=== PATIENT | female | born 1990 | race African-American/Black ===

== ENCOUNTER 2016-07-30 21:54 | Emergency (ER) | payer MEDICAID ==
[~2016-07-30] VITALS: Ht 170.2 cm; Wt 56.0 kg
[~2016-07-30 21:54] MED LIST: OCUF0.3D RIGHT EYE
[2016-07-30 21:56] VITALS: BP 114/66; PULSE 69; RESP 16; TEMP 98.9; O2SAT 100
[2016-07-30] MEDS ORDERED: ALBU6.7H INH (22:08)
[2016-07-30] MEDS ORDERED: SODIUM CHLOR 0.9% 1000 ML INJ 1,000 ML IV ONE (22:15)
[2016-07-30] MEDS ORDERED: ONDANSETRON HCL 4 MG/2 ML VIAL IV ONE (22:15)
[2016-07-30 22:31] VITALS: RESP 18; O2SAT 100
[2016-07-30 22:36] LABS: AUTOMATED NEUTROPHIL # 1.9 TH/MM3 (1.8-7.7); BASOPHIL % 0.6 % (0.0-2.0); EOSINOPHIL # 0.2 TH/MM3 (0-0.4); EOSINOPHIL % 3.8 % (0.0-4.0); HEMATOCRIT 33.4 % (35.0-46.0); HEMO FLAGS DIFF FINAL; LYMPH % 42.5 % (9.0-44.0); MEAN CORPUSCULAR HEMOGLOBIN 30.4 PG (27.0-34.0); MEAN CORPUSCULAR HGB CONC 33.4 % (32.0-36.0); MONO % 11.6 % (0.0-8.0); NEUT % 41.5 % (16.0-70.0); PLATELET COUNT 280 TH/MM3 (150-450); RED BLOOD COUNT 3.67 MIL/MM3 (4.00-5.30); RED CELL DISTRIBUTION WIDTH 13.3 % (11.6-17.2); WHITE BLOOD COUNT 4.6 TH/MM3 (4.0-11.0)
[2016-07-30 22:46] LABS: BLOOD, URINE MOD (NEG); GLUCOSE,URINE NEG (NEG); KETONE, URINE NEG (NEG); MUCUS URINE FEW /lpf (OCC); NITRITE,URINE NEG (NEG); PH, URINE 6.5 (5.0-8.5); RENAL EPITHELIAL CELLS <1 /hpf; SQUAMOUS EPITHELIAL CELL URINE 1 /hpf (0-5); URINE COLOR YELLOW (YELLW/STRAW)
[2016-07-30 22:47] LABS: COMMENT (UR) CULT NOT INDICATED; CULTURE IF INDICATED CULT NOT INDICATED
[2016-07-30 22:56] LABS: ALT (GPT) 57 U/L (10-53); ANION GAP 7 MEQ/L (5-15); AST (GOT) 36 U/L (15-37); BLOOD UREA NITROGEN 7 MG/DL (7-18); CHLORIDE 107 MEQ/L (98-107); GLOMERULAR FILTRATION RATE 135 ML/MIN (>89); POTASSIUM 3.4 MEQ/L (3.5-5.1); SODIUM (NA) 142 MEQ/L (136-145)
[2016-07-30 22:58] LABS: ALKALINE PHOSPHATASE 64 U/L (45-117); TOTAL BILIRUBIN ADULT 0.3 MG/DL (0.2-1.0)
--- NOTE | 2016-07-30 23:09 | RADRPT ---
EXAM DATE/TIME: 07/30/2016 22:56 [place] COMPARISON: No previous studies available for comparison. INDICATIONS : Cephalgia. RADIATION DOSE: 34.15 CTDIvol (mGy) MEDICAL HISTORY : None SURGICAL HISTORY : None. ENCOUNTER: Initial ACUITY: 1 day PAIN SCALE: 6/10 LOCATION: cranial TECHNIQUE: Multiple contiguous axial images were obtained of the head. Using automated exposure control and adj ustment of the mA and/or kV according to patient size, radiation dose was kept as low as reasonably a chievable to obtain optimal diagnostic quality images. FINDINGS: CEREBRUM: The ventricles are normal for age. No evidence of midline shift, mass lesion, hemorrhage or acute in farction. No extra-axial fluid collections are seen. POSTERIOR FOSSA: The cerebellum and brainstem are intact. The 4th ventricle is midline. The cerebellopontine angle i s unremarkable. EXTRACRANIAL: The visualized portion of the orbits is intact. SKULL: The calvaria is intact. No evidence of skull fracture. CONCLUSION: Normal examination for a patient of this age. Eleuterio Solorzano MD on July 30, 2016 at 23:03 Board Certified Radiologist. This report was verified electronically.
[2016-07-30] MEDS ORDERED: ACETAMINOPHEN 325 MG TAB PO ONE (23:30)
[2016-07-30] MEDS ORDERED: cefTRIAXone INJ 1,000 MG in SODIUM CHLORIDE 0.9% INJ 100 ML IV ONE (23:30)
--- NOTE | 2016-07-30 23:40 | PD ---
HPI Chief Complaint: Headache Time Seen by Provider: 22:08 Travel History International Travel<30 days: No Contact w/Intl Traveler<30days: No Traveled to known affect area: No History of Present Illness HPI The patient is a 25 year old female who presents to the [facility] emergency department with a history of at the end of last week beginning to have dysuria with urinary frequency and urgency, and then over the weekend developing upper respiratory symptoms including cough, congestion, sinus pressure over her for head. The patient reports that the headache became worse prior to arrival and was associated with nausea and vomiting 2. She reports that her kids have recently been sick with an upper respiratory infection. She reports that she's had a subjective fever. She denies having any neck pain. She denies having any diarrhea. Her last bowel movement was yesterday. She has a known history of asthma, however she has not been using an inhaler. She denies any chest pain, chest pressure, or shortness of breath. She cannot recall when she last had a menstrual cycle as she has the Mirena IUD. The patient denies any history of abdominal pain, one-sided weakness, slurred speech , vision changes, dizziness, facial droop, numbness or tingling to her extremities, or difficulty with word finding ability. PFSH Past Medical History Narrative Medical The patient's past medical history is significant for mild asthma. Asthma: Yes Diminished Hearing: No Respiratory: Yes (asthma) ?: Not Past Surgical History Narrative Surgical The patient's past surgical history is reportedly none. Surgical History: No Previous Surgery Social History Alcohol Use: No Tobacco Use: No Substance Use: No Allergies-Medications (Allergen,Severity, Reaction): Coded Allergies: Ibuprofen (Verified Allergy, Severe, THROAT SWELLING, 03/29/16) Reported Meds & Prescriptions Reported Meds & Active Scripts Active Reported Proventil Hfa 6.7 GM Inh (Albuterol Sulfate) 90 Mcg/Act Aer 1 Puff INH Q4H PRN Review of Systems Except as stated in HPI: all other systems reviewed are Neg General / Constitutional: No: Fever Eyes: No: Visual changes HENT: Positive: Headaches, Congestion Cardiovascular: No: Chest Pain or Discomfort Respiratory: Positive: Cough, No: Shortness of Breath Gastrointestinal: Positive: Nausea, Vomiting, No: Abdominal Pain Genitourinary: Positive: Urgency, Frequency, Dysuria Musculoskeletal: No: Pain Skin: No Rash Neurologic: Positive: Headache, No: Weakness, Focal Abnormalities, Change in Mentation, Slurred Speech, Sensory Disturbance Psychiatric: No: Depression Endocrine: No: Polydipsia Hematologic/Lymphatic: No: Easy Bruising Physical Exam Narrative General: The patient is a well-developed well-nourished female in no acute distress. Head and Neck exam: Head is normocephalic atraumatic. Eyes: EOMI, pupils are equal round and reactive to light. Sinus pressure noted on palpation of the frontal sinuses. Nose: Midline septum with erythematous edematous nasal mucosa and a clear nasal discharge. Mouth: Dentition unremarkable. Moist mucus membranes. Posterior oropharynx is mildly erythematous with mild tonsillar hypertrophy. No exudates. Uvula midline. Airway patent. Neck: No palpable lymphadenopathy. No nuchal rigidity. No thyromegaly. Cardiovascular: Regular rate and rhythm without murmurs, gallops, or rubs. Lungs: Clear to auscultation bilaterally. No wheezes, rhonchi, or rales. Abdomen: Soft, without tenderness to palpation in all 4 quadrants of the abdomen. No guarding, rebound, or rigidity. Normal bowel sounds are audible. No tenderness on palpation of McBurney's point. Negative Trotter's sign. Extremities: No clubbing, cyanosis, or edema. 2+ pulses in all 4 extremities. Back: No spinous process tenderness to palpation. Right-sided CVA tenderness on palpation. Neurologic Exam: Cranial nerves 2-12 were intact on exam. Strength is 5/5 in all 4 extremities. No sensory deficits noted. Skin Exam: No rash noted. Intact skin that is warm and dry. Data Data Last Documented VS Vital Signs Date Time Temp Pulse Resp B/P Pulse Ox O2 Delivery O2 Flow Rate FiO2 07/30/16 22:31 18 100 07/30/16 21:56 98.9 69 114/66 Orders Complete Blood Count With Diff (07/30/16 22:10) Comprehensive Metabolic Panel (07/30/16 22:10) Lipase (07/30/16 22:10) Urinalysis - C+S If Indicated (07/30/16 22:10) Magnesium (Mg) (07/30/16 22:10) Ct Brain W/O Iv Contrast(Rout) (07/30/16 22:10) Iv Access Insert/Monitor (07/30/16 22:10) Ecg Monitoring (07/30/16 22:10) Oximetry (07/30/16 22:10) Ed Urine Pregnancytest Poc (07/30/16 22:10) Sodium Chlor 0.9% 1000 Ml Inj (Ns 1000 M (07/30/16 22:15) Ondansetron Inj (Zofran Inj) (07/30/16 22:15) Acetaminophen (Tylenol) (07/30/16 23:30) Ceftriaxone Inj (Rocephin Inj) (07/30/16 23:30) Urine Culture (07/30/16 23:37) Ketorolac Inj (Toradol Inj) (07/30/16 23:45) Prochlorperazine Inj (Compazine Inj) (07/30/16 23:45) Diphenhydramine Inj (Benadryl Inj) (07/30/16 23:45) Labs Laboratory Tests Test 07/30/16 22:17 White Blood Count 4.6 TH/MM3 Red Blood Count 3.67 MIL/MM3 Hemoglobin 11.2 GM/DL Hematocrit 33.4 % Mean Corpuscular Volume 91.0 FL Mean Corpuscular Hemoglobin 30.4 PG Mean Corpuscular Hemoglobin 33.4 % Concent Red Cell Distribution Width 13.3 % Platelet Count 280 TH/MM3 Mean Platelet Volume 7.4 FL Neutrophils (%) (Auto) 41.5 % Lymphocytes (%) (Auto) 42.5 % Monocytes (%) (Auto) 11.6 % Eosinophils (%) (Auto) 3.8 % Basophils (%) (Auto) 0.6 % Neutrophils # (Auto) 1.9 TH/MM3 Lymphocytes # (Auto) 2.0 TH/MM3 Monocytes # (Auto) 0.5 TH/MM3 Eosinophils # (Auto) 0.2 TH/MM3 Basophils # (Auto) 0.0 TH/MM3 CBC Comment DIFF FINAL Differential Comment Urine Color YELLOW Urine Turbidity CLEAR Urine pH 6.5 Urine Specific [place] 1.018 Urine Protein NEG mg/dL Urine Glucose (UA) NEG mg/dL Urine Ketones NEG mg/dL Urine Occult Blood MOD Urine Nitrite NEG Urine Bilirubin NEG Urine Urobilinogen LESS THAN 2.0 MG/DL Urine Leukocyte Esterase MOD Urine RBC 14 /hpf Urine WBC 2 /hpf Urine Squamous Epithelial 1 /hpf Cells Urine Renal Epithelial Cells <1 /hpf Urine Mucus FEW /lpf Microscopic Urinalysis Comment CULT NOT INDICATED Sodium Level 142 MEQ/L Potassium Level 3.4 MEQ/L Chloride Level 107 MEQ/L Carbon Dioxide Level 28.0 MEQ/L Anion Gap 7 MEQ/L Blood Urea Nitrogen 7 MG/DL Creatinine 0.64 MG/DL Estimat Glomerular Filtration 135 ML/MIN Rate Random Glucose 93 MG/DL Calcium Level 8.1 MG/DL Magnesium Level 2.0 MG/DL Total Bilirubin 0.3 MG/DL Aspartate Amino Transf 36 U/L (AST/SGOT) Alanine Aminotransferase 57 U/L (ALT/SGPT) Alkaline Phosphatase 64 U/L Total Protein 6.8 GM/DL Albumin 4.0 GM/DL Lipase 128 U/L MDM Medical Decision Making Medical Screen Exam Complete: Yes Emergency Medical Condition: Yes Medical Record Reviewed: Yes Differential Diagnosis Acute sinusitis, versus allergy related headache, versus tension headache, versus migraine headache, versus viral syndrome, versus dehydration related headache Narrative Course During the course of the patients emergency department visit, the patients history, examination, and differential diagnosis were reviewed with the patient. The patient had IV access obtained and blood work sent for analysis. 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 The patient was initially provided Tylenol 650 by mouth 1 for pain, normal saline 1 L IV fluid bolus, Zofran 4 mg IV for nausea. The patients laboratory studies were reviewed and remarkable for a white count of 4.6, hemoglobin 11.2, platelets 280 with 11.6 monocytes, CMP is remarkable for potassium of 3.4, calcium 8.1, ALT 57, lipase 128, urinalysis shows moderate occult blood, 14 RBCs, 2wbc's, a culture of the urine was ordered. Radiology studies were reviewed and remarkable for a CT scan of the brain shows no acute abnormality. The patient was reexamined after additionally being given Toradol 15 mg IV, Compazine 5 mg IV, Benadryl 25 mg IV. The patient reported that her headache was improving. The patient will be discharged home on antibiotics for a suspected urinary tract infection and sinus infection. The patient is resting comfortably and feels better, is alert and in no distress. The patients results and examination findings were discussed with the patient. The repeat examination is unremarkable and benign. The history, exam, diagnostic testing, and current condition do not suggest any significant pathology to warrant further testing, continued ED treatment, admission, or surgical evaluation at this point. The vital signs have been stable. The patient does not have uncontrollable pain, intractable vomiting, or other significant symptoms. The patient's condition is stable and appropriate for discharge. The patient will pursue further outpatient evaluation with a primary care physician or other designated or consulting physician as indicated in the discharge instructions. The patient expressed understanding and was agreeable with this plan. Diagnosis Primary Impression: Acute sinusitis Qualified Code: J01.10 - Acute frontal sinusitis, recurrence not specified Additional Impression: Urinary tract infection Qualified Code: N39.0 - Urinary tract infection with hematuria, site unspecified Referrals: Primary Care Physician 3 days Patient Instructions: Acute Nausea and Vomiting (ED), General Instructions, Sinusitis (ED), Urinary Tract Infection in Women (ED) Med/Other Pt SpecificInfo: Prescription(s) given Scripts Cefuroxime (Ceftin)500 Mg Pry307 Mg PO BID #20 TAB Ref 0 Prov:Michaela Pruitt MD 07/31/16 Ondansetron Odt (Zofran Odt)4 Mg Tab4 Mg SL Q6HR PRN (Nausea/Vomiting) #7 TAB Ref 0 Prov:Michaela Pruitt MD 07/31/16 Disposition: 01 DISCHARGE HOME Condition: Stable Michaela Pruitt MD Jul 30, 2016 23:40
[2016-07-30] MEDS ORDERED: KETOROLAC TROMETHAMINE 30 MG/ML (IVP) VIAL IV PUSH ONE (23:45)
[2016-07-30] MEDS ORDERED: PROCHLORPERAZINE INJ 10 MG/2 ML VIAL IV PUSH ONE (23:45)
[2016-07-30] MEDS ORDERED: diphenhydrAMINE HCL 50 MG/ML VIAL IV PUSH ONE (23:45)
[2016-07-31] MEDS ORDERED: ZOFR4TAB3 SL (00:31)
[2016-07-31] MEDS ORDERED: CEFT500T3 PO (00:31)
== END 2016-07-31 01:10 | disposition home or self-care (01) ==
LOC: NEPE 21:54
DX: J01.10 Acute frontal sinusitis, unspecified (principal); N39.0 Urinary tract infection, site not specified; B96.89 Other specified bacterial agents as the cause of diseases classified elsewhere; R31.9 Hematuria, unspecified; R11.2 Nausea with vomiting, unspecified
CPT/HCPCS: 70450; 80053; 81001; 83690; 83735; 84703; 85025; 87086; 96361; 96365; 96375; 99284; J0696; J0780; J1200; J1885; J2405; J7030

== ENCOUNTER 2016-08-08 22:42 | Emergency (ER) | payer MEDICAID ==
[~2016-08-08] VITALS: Ht 170.2 cm; Wt 55.0 kg
[~2016-08-08 22:42] MED LIST changes: +ALBU6.7H INH; +CEFT500T3 PO; -OCUF0.3D RIGHT EYE; +ZOFR4TAB3 SL
[2016-08-08 22:44] VITALS: BP 124/63; PULSE 68; RESP 14; TEMP 98.8; O2SAT 100
[2016-08-08] MEDS ORDERED: PERI0.126 SWISH-SPIT (23:00)
--- NOTE | 2016-08-08 23:00 | PD ---
HPI Chief Complaint: ENT Complaint Time Seen by Provider: 22:59 Travel History International Travel<30 days: No Contact w/Intl Traveler<30days: No Traveled to known affect area: No History of Present Illness HPI 25-year-old female presents to the emergency department for evaluation of right sided tooth pain and ear pain. Patient states she was recently treated for a sinus infection as well as dental infection. She states she took her antibiotics as prescribed. She has not yet been able to get into a dentist. Denies any trauma. No fever or chills. No cough or chest congestion. She has no other symptoms to report. PFSH Past Medical History Asthma: Yes Diminished Hearing: No Respiratory: Yes (asthma) Social History Alcohol Use: No Tobacco Use: No Substance Use: No Allergies-Medications (Allergen,Severity, Reaction): Coded Allergies: Ibuprofen (Verified Allergy, Severe, THROAT SWELLING, 08/08/16) Reported Meds & Prescriptions Reported Meds & Active Scripts Active Ultram (Tramadol HCl) 50 Mg Tab 50 Mg PO Q6H PRN Peridex Liq (Chlorhexidine Gluconate (Mouth) Liq) 0.12% Soln 15 Ml SWISH-SPIT BID Ceftin (Cefuroxime Axetil) 500 Mg Tab 500 Mg PO BID Zofran Odt (Ondansetron Odt) 4 Mg Tab 4 Mg SL Q6HR PRN Reported Proventil Hfa 6.7 GM Inh (Albuterol Sulfate) 90 Mcg/Act Aer 1 Puff INH Q4H PRN Review of Systems Except as stated in HPI: all other systems reviewed are Neg Physical Exam Narrative GENERAL: Well-nourished, well-developed female patient in no acute distress SKIN: Focused skin assessment warm/dry. HEAD: Normocephalic. Erythema or edema. No mastoid tenderness. EARS: Bilateral pinnae and external canals appear within normal limits. Bilateral tympanic membranes without erythema, dullness or perforation. EYES: No scleral icterus. No injection or drainage. ENT: Mucosa pink and moist. No erythema or exudates. No uvular edema. No uvular , palatal, or tonsillar deviation. Airway patent. Nasal turbinates appear normal without nasal blood, purulent drainage or septal hematoma. DENTAL: Patient has generalized poor dentition. There are several teeth that are severely decayed down to the gingiva with gingival erythema. No appreciable abscess. No malocclusion. NECK: Supple, trachea midline. No JVD or lymphadenopathy. CARDIOVASCULAR: Regular rate and rhythm without murmurs, gallops, or rubs. RESPIRATORY: Breath sounds equal bilaterally. No accessory muscle use. MUSCULOSKELETAL: No cyanosis, or edema. BACK: Nontender without obvious deformity. No CVA tenderness. Data Data Last Documented VS Vital Signs Date Time Temp Pulse Resp B/P Pulse Ox O2 Delivery O2 Flow Rate FiO2 08/08/16 22:44 98.8 68 14 124/63 100 Room Air Orders Ketorolac Inj (Toradol Inj) (08/08/16 23:15) [facility] Medical Decision Making Medical Screen Exam Complete: Yes Emergency Medical Condition: Yes Medical Record Reviewed: Yes Differential Diagnosis Dental caries versus dentalgia versus periodontal disease versus gingivitis versus pulpitis Narrative Course 25-year-old female presents to the emergency department for evaluation. Patient exam is overall benign except for findings a significantly decayed teeth. Patient's pain is likely secondary to this. I strongly encouraged her to seek dental evaluation. She'll be provided Peridex oral rinse and some pain control. She agrees to return immediately with any acute worsening of symptoms. Diagnosis Primary Impression: Dentalgia Additional Impression: Dental caries Referrals: Dentist Primary Care Physician Patient Instructions: Dental Caries (ED), General Instructions Departure Forms: Tests/Procedures, Work Release Enter return to work date: August 10, 2016 Additional Instructions: It is important that you seek dental evaluation as soon as possible Return immediately with any acute worsening of symptoms Med/Other Pt SpecificInfo: Prescription(s) given Scripts Tramadol (Ultram)50 Mg Tab50 Mg PO Q6H PRN (PAIN GREATER THAN 6) #15 TAB Ref 0 Prov:Jessica Love MD 08/08/16 Chlorhexidine Gluconate (Mouth) Liq (Peridex Liq)0.12% Soln15 Ml SWISH-SPIT BID #473 ML Ref 0 Prov:Baylee Owens 08/08/16 Disposition: 01 DISCHARGE HOME Condition: Stable Baylee Owens August 08, 2016 23:00
[2016-08-08] MEDS ORDERED: ULTR50TA5 PO (23:01)
[2016-08-08] MEDS ORDERED: KETOROLAC TROMETHAMINE 60 MG/2 ML (IM) VIAL IM ONE (23:15)
== END 2016-08-08 23:33 | disposition home or self-care (01) ==
LOC: NEPK 22:42
DX: K08.89 Other specified disorders of teeth and supporting structures (principal); H92.01 Otalgia, right ear; K02.9 Dental caries, unspecified; J45.909 Unspecified asthma, uncomplicated
CPT/HCPCS: 96372; 99282; J1885

== ENCOUNTER 2016-08-11 00:05 | Emergency (ER) | payer MEDICAID ==
[~2016-08-11] VITALS: Ht 170.2 cm; Wt 55.0 kg
[~2016-08-11 00:05] MED LIST changes: +PERI0.126 SWISH-SPIT; +ULTR50TA5 PO
[2016-08-11 00:10] VITALS: BP 121/76; PULSE 67; RESP 16; TEMP 98.9; O2SAT 98
[2016-08-11] MEDS ORDERED: diphenhydrAMINE HCL 50 MG/ML VIAL ONE (01:59)
[2016-08-11] MEDS ORDERED: PROCHLORPERAZINE INJ 10 MG/2 ML VIAL ONE (01:59)
[2016-08-11] MEDS ORDERED: KETOROLAC TROMETHAMINE 30 MG/ML (IVP) VIAL ONE (02:00)
[2016-08-11] MEDS ORDERED: NAPR500T PO (02:55)
--- NOTE | 2016-08-11 02:55 | PD ---
HPI Chief Complaint: Headache Time Seen by Provider: 00:58 Travel History International Travel<30 days: No Contact w/Intl Traveler<30days: No Traveled to known affect area: No History of Present Illness HPI This is a 25-year-old female who presents to the emergency department with headache is been going on for 1 week, constant, moderate severity on the top of her head, associated with some nausea. Her headache gets worse in the evenings. She's been to the emergency department twice for similar symptoms. Once she was told it was sinusitis and another time it was thought to be related to a toothache. She says she's been taking Excedrin and it has not been helping. She says IV Toradol does make it go away. She is not typically prone to headaches. PFSH Past Medical History Asthma: Yes Diminished Hearing: No Respiratory: Yes (asthma) ?: Not LMP: 08/05/16 Past Surgical History Surgical History: No Previous Surgery Social History Alcohol Use: No Tobacco Use: No Substance Use: No Allergies-Medications (Allergen,Severity, Reaction): Coded Allergies: Ibuprofen (Verified Allergy, Severe, THROAT SWELLING, 08/11/16) Reported Meds & Prescriptions Reported Meds & Active Scripts Active Ultram (Tramadol HCl) 50 Mg Tab 50 Mg PO Q6H PRN Peridex Liq (Chlorhexidine Gluconate (Mouth) Liq) 0.12% Soln 15 Ml SWISH-SPIT BID Ceftin (Cefuroxime Axetil) 500 Mg Tab 500 Mg PO BID Zofran Odt (Ondansetron Odt) 4 Mg Tab 4 Mg SL Q6HR PRN Reported Proventil Hfa 6.7 GM Inh (Albuterol Sulfate) 90 Mcg/Act Aer 1 Puff INH Q4H PRN Review of Systems Except as stated in HPI: all other systems reviewed are Neg Physical Exam Narrative GENERAL:Well appearing, no acute distress SKIN: Focused skin assessment warm and dry. HEAD: Atraumatic. Normocephalic. EYES: Pupils equal and round. No injection or drainage. ENT: Moist mucous membranes NECK: Trachea midline. CARDIOVASCULAR: Regular rate and rhythm. No murmur appreciated. RESPIRATORY: Clear to auscultation. Breath sounds equal bilaterally. GASTROINTESTINAL: Abdomen soft, non-tender, nondistended. MUSCULOSKELETAL: No obvious deformities. NEUROLOGICAL: Awake and alert. No obvious cranial nerve deficits. No dysarthria or aphasia. No upper or lower extremity drift. No upper extremity ataxia. Visual mcarthur intact. PSYCHIATRIC: Appropriate mood and affect; insight and judgment normal. Data Data Last Documented VS Vital Signs Date Time Temp Pulse Resp B/P Pulse Ox O2 Delivery O2 Flow Rate FiO2 08/11/16 00:10 98.9 67 16 121/76 98 Room Air Orders Diphenhydramine Inj (Benadryl Inj) (08/11/16 01:59) Prochlorperazine Inj (Compazine Inj) (08/11/16 01:59) Ketorolac Inj (Toradol Inj) (08/11/16 02:00) [facility] Medical Decision Making Medical Screen Exam Complete: Yes Emergency Medical Condition: Yes Medical Record Reviewed: Yes (patient has been seen in the ER twice in the past 2 weeks for similar symptoms. She had a normal head CT performed earlier this week.) Interpretation(s) Afebrile, no tachycardia, normotensive Differential Diagnosis Migraine headache, tension headache, subarachnoid hemorrhage, sinusitis, dentalgia Narrative Course This is a 25-year-old female who presents to the emergency department with headache that's been going on for [address] imaging earlier this week which was reassuring. She has a normal neurologic exam. She is very well- appearing on exam. She was given IV Toradol, Compazine and IV fluids and feels much better and would like to go home. Patient was referred to neurology as an outpatient. Diagnosis Primary Impression: Headache Qualified Code: R51 - Nonintractable headache, unspecified chronicity pattern , unspecified headache type Referrals: Elton Johnson MD Patient Instructions: General Instructions Additional Instructions: If you develop severe worsening headache, persistent vomiting, numbness, weakness, difficulty walking or difficulty talking return to the emergency department immediately. Sometimes in the emergency department we did not identify the cause of headaches. If you continued to have headaches it is very important that you followup with your primary care physician as you may need further testing with an MRI. Med/Other Pt SpecificInfo: Prescription(s) given Scripts Naproxen 500 Mg Sby002 Mg PO BID PRN (PAIN SCALE 4 TO 10) #20 TAB Prov:Opal Tomas MD 08/11/16 Disposition: 01 DISCHARGE HOME Condition: Stable Opal Tomas MD August 11, 2016 02:55
== END 2016-08-11 03:16 | disposition home or self-care (01) ==
LOC: NED 00:05 → NEPE 03:16
DX: R51 Headache (principal)
CPT/HCPCS: 96374; 96375; 99283; J0780; J1200; J1885

== ENCOUNTER 2016-11-30 03:28 | Emergency (ER) | payer MEDICAID ==
[~2016-11-30] VITALS: Ht 170.2 cm; Wt 55.0 kg
[~2016-11-30 03:28] MED LIST changes: +NAPR500T PO
[2016-11-30 03:33] VITALS: BP 129/77; PULSE 77; RESP 18; TEMP 97.5; O2SAT 99
--- NOTE | 2016-11-30 04:55 | PD ---
HPI Chief Complaint: Eye Problems/Injury Time Seen by Provider: 04:37 Travel History International Travel<30 days: No Contact w/Intl Traveler<30days: No Traveled to known affect area: No History of Present Illness HPI 26-year-old black female presents to emergency department complaining of some right eye pain. The patient is a contact wearer. She states that she had not worn contacts for the last few weeks because she had ran out over contacts. She started wearing contacts after purchasing new contacts this past week. She' s been wearing this contact the last 6-12 hours. She states that she takes her contacts out daily and cleanse them before she reapplies them. She states that she noticed pain earlier this evening. He has become severe causing a headache , blurred vision and general malaise. She states the pain is severe. No diplopia. Positive tearing. No mucoid drainage. PFSH Past Medical History Narrative Medical Asthma Asthma: Yes Diminished Hearing: No Respiratory: Yes (asthma) Tetanus Vaccination: Unknown Influenza Vaccination: Yes ?: Not LMP: IUD Past Surgical History Surgical History: No Previous Surgery Social History Alcohol Use: No Tobacco Use: No Substance Use: No Allergies-Medications (Allergen,Severity, Reaction): Coded Allergies: ibuprofen (Unverified Allergy, Severe, THROAT SWELLING, 11/19/16) Reported Meds & Prescriptions Reported Meds & Active Scripts Active No Active Prescriptions or Reported Medications Review of Systems Except as stated in HPI: all other systems reviewed are Neg General / Constitutional: No: Fever, Chills Eyes: Positive: Blurred Vision, Photophobia, Redness, Foreign Body Sensation, Pain, Tearing, Visual changes, No: Diploplia, Drainage, Blindness HENT: No: Headaches, Neck Stiffness Physical Exam Narrative GENERAL: Well-developed, well-nourished in no acute distress. Nontoxic appearing. HEAD: Normocephalic, atraumatic. EYES: Pupils equal round and reactive. Extraocular motions intact. No scleral icterus. No injection or drainage in the left eye. The right eye is injected. Ophthaine is instilled in the right eye with resolution of her pain. Direct visualization of the right eye reveals a corneal ulcer which can be seen with the naked eye at the 8:00 hour over the iris. This measures approximately 1-2 mm. Fluorescein stain confirms the ulcer. ENT: TMs clear without erythema. The external auditory canals clear. Nose: clear . Posterior pharynx is pink and moist. No tonsillar edema or exudate. Uvula midline. Airway patent. NECK: Trachea midline.Supple, nontender, moves head freely. No central bony tenderness or spasm. CARDIOVASCULAR: Regular rate and rhythm without murmurs, gallops, or rubs. RESPIRATORY: Clear to auscultation. Breath sounds equal bilaterally. No wheezes , rales, or rhonchi. GASTROINTESTINAL: Abdomen soft, non-tender, nondistended. No hepato-splenomegaly , or palpable masses. No guarding. EXTREMITIES: No clubbing, cyanosis, or edema. No joint tenderness, effusion, or edema noted. BACK: Nontender without deformity or crepitance. No flank tenderness. Data Data Last Documented VS Vital Signs Date Time Temp Pulse Resp B/P (MAP) Pulse Ox O2 Delivery O2 Flow Rate FiO2 11/30/16 03:33 97.5 77 18 129/77 (94) 99 Orders Orders Oxycodone-Acetamin 5-325 Mg (Percocet (11/30/16 05:00) Moxifloxacin 0.5% Opht Soln (Vigamox 0.5 (11/30/16 05:00) Tetanus/Diphtheria Tox Adult (Tetanus/Di (11/30/16 05:00) MDM Medical Decision Making Medical Screen Exam Complete: Yes Emergency Medical Condition: Yes Medical Record Reviewed: Yes Differential Diagnosis MDM: High Differential diagnoses: Acute conjunctivitis (bacterial, viral, allergic, traumatic), glaucoma, iritis, traumatic globe injury, foreign body, corneal abrasion, corneal ulcer Narrative Course Patient's given 1 Percocet and she is started on Vigamox drops. Tetanus in position updated. The patient is advised to use the Vigamox drops 1 drop every 15 minutes for the first hour then 1 drop every hour until she sees the eye doctor today. This is right corneal ulcer Diagnosis Primary Impression: Corneal ulcer, right Patient Instructions: Narcotic given in the ED, General Instructions Additional Instructions: Rest. One drop of Vigamox every 15 minutes for the first hour then 1 drop every hour to the right eye until seen by the eye doctor today. Return to the ER for emergencies. Do not wear contacts until otherwise informed by your eye doctor. Med/Other Pt SpecificInfo: Prescription(s) given Scripts No Active Prescriptions or Reported Meds Disposition: 01 DISCHARGE HOME Condition: Hayder Casper Nov 30, 2016 04:55
[2016-11-30] MEDS ORDERED: MOXIFLOXACIN 0.5% OPHT SOLN 3 ML BTL RIGHT EYE ONE (05:00)
[2016-11-30] MEDS ORDERED: oxyCODONE/ACETAMINOPHEN 5 MG/325 MG TAB PO ONE (05:00)
[2016-11-30] MEDS ORDERED: TETANUS/DIPHTHERIA TOXOID ADULT 0.5 ML VIAL IM ONE (05:00)
[2016-11-30 05:05] VITALS: BP 111/61
== END 2016-11-30 05:27 | disposition home or self-care (01) ==
LOC: NEPD 03:28
DX: H16.001 Unspecified corneal ulcer, right eye (principal); R51 Headache; R53.81 Other malaise; Z23 Encounter for immunization; Z87.09 Personal history of other diseases of the respiratory system
CPT/HCPCS: 90471; 90714

== ENCOUNTER 2017-04-14 01:30 | Emergency (ER) | payer SELFPAY ==
[~2017-04-14] VITALS: Ht 170.2 cm; Wt 61.0 kg
[2017-04-14] MEDS ORDERED: IOHEXOL 350 MG/ML 10 ML VIAL (for RAD DIAG) IVCONTRAST ONE (01:31)
[2017-04-14 01:32] VITALS: BP 132/60; PULSE 88; RESP 16; TEMP 98; O2SAT 100
--- NOTE | 2017-04-14 02:23 | PD ---
HPI Chief Complaint: Abdominal Pain Time Seen by Provider: 02:01 Travel History International Travel<30 days: No Contact w/Intl Traveler<30days: No Traveled to known affect area: No History of Present Illness HPI The patient is a 26 year old female who presents to the [facility] emergency department with a history of abdominal pain that began 1 hour ago. The pain awoke her from sound sleep. The patient reports that the pain is severe when it occurs. It is coming and going. It woke her from sound sleep. It is sharp in character. She denies having any vaginal discharge. On review of systems otherwise, the patient denies having any recent fevers, cough, congestion, neck pain, chest pain, shortness of breath, vomiting, diarrhea, urinary symptoms, or neurologic symptoms. Her last BM was today. She denies having any blood in her stool. LMP: Mirena IUD- placed 3 years ago. PFSH Past Medical History Narrative Medical The patient's past medical history is significant for asthma. Asthma: Yes Diminished Hearing: No Respiratory: Yes (asthma) ?: Not : 3 Para: 3 Past Surgical History Surgical History: No Previous Surgery Gynecologic Surgery: Yes (FIBROID REMOVED) Social History Alcohol Use: No Tobacco Use: No Substance Use: No Allergies-Medications (Allergen,Severity, Reaction): Coded Allergies: ibuprofen (Unverified Allergy, Severe, THROAT SWELLING, 04/14/17) Reported Meds & Prescriptions Reported Meds & Active Scripts Active Flagyl (Metronidazole) 500 Mg Tab 500 Mg PO BID 14 Days Doxycycline Hyclate 100 Mg Cap 100 Mg PO BID Review of Systems Except as stated in HPI: all other systems reviewed are Neg General / Constitutional: No: Fever Eyes: No: Visual changes HENT: No: Headaches Cardiovascular: No: Chest Pain or Discomfort Respiratory: No: Shortness of Breath Gastrointestinal: Positive: Abdominal Pain, No: Nausea, Vomiting, Diarrhea Genitourinary: Positive: Pelvic Pain, No: Urgency, Frequency, Dysuria, Discharge, Vaginal Bleeding Musculoskeletal: No: Pain Skin: No Rash Neurologic: No: Weakness, Focal Abnormalities, Change in Mentation, Slurred Speech, Sensory Disturbance Psychiatric: No: Depression Endocrine: No: Polydipsia Hematologic/Lymphatic: No: Easy Bruising Physical Exam Narrative General: The patient is a well-developed well-nourished female in no acute distress. Head and Neck exam: Head is normocephalic atraumatic. Eyes: EOMI, pupils are equal round and reactive to light. Nose: Midline septum with pink mucous membranes Mouth: Dentition unremarkable. Moist mucus membranes. Posterior oropharynx is not erythematous. No tonsillar hypertrophy. Uvula midline. Airway patent. Neck: No palpable lymphadenopathy. No nuchal rigidity. No thyromegaly. Cardiovascular: Regular rate and rhythm without murmurs, gallops, or rubs. Lungs: Clear to auscultation bilaterally. No wheezes, rhonchi, or rales. Abdomen: Soft, reported tenderness on palpation along the right lower quadrant and suprapubic area. The patient has tenderness on palpation over McBurney's point. No other tenderness on palpation of the other quadrants of the abdomen. No guarding, rebound, or rigidity. Normal bowel sounds are audible. Negative Trotter's sign. Extremities: No clubbing, cyanosis, or edema. 2+ pulses in all 4 extremities. No calf tenderness on palpation. Back: No costovertebral angle tenderness to palpation. Neurologic Exam: Grossly nonfocal. Skin Exam: No rash noted. Intact skin that is warm and dry. Gynecologic exam: The patient was placed in the dorsal lithotomy position. Her external genitalia were examined. She had no evidence of rash or lesions. The speculum was placed into her vagina and the cervix was identified. She has a thin yellow discharge noted. This was wet prep and culture. The patient has cervical friability noted. On Bimanual exam: The patient's cervical os is closed. She has cervical motion tenderness on palpation. No adnexal tenderness or prominence noted on palpation. No uterine tenderness or enlargement noted on palpation. Data Data Last Documented VS Vital Signs Date Time Temp Pulse Resp B/P (MAP) Pulse Ox O2 Delivery O2 Flow Rate FiO2 04/14/17 02:35 100 Room Air 04/14/17 01:32 98.0 88 16 Orders Orders Complete Blood Count With Diff (04/14/17 02:16) Comprehensive Metabolic Panel (04/14/17 02:16) C-Reactive Protein (Crp) (04/14/17 02:16) Lipase (04/14/17 02:16) Urinalysis - C+S If Indicated (04/14/17 02:16) Iv Access Insert/Monitor (04/14/17 02:16) Ecg Monitoring (04/14/17 02:16) Oximetry (04/14/17 02:16) Ed Urine Pregnancytest Poc (04/14/17 02:16) Gc And Chlamydia Pcr (04/14/17 02:36) Wet Prep Profile (04/14/17 02:36) Ct Abd/Pel W Iv Contrast(Rout) (04/14/17 02:57) Sodium Chlor 0.9% 1000 Ml Inj (Ns 1000 M (04/14/17 03:00) Morphine Inj (Morphine Inj) (04/14/17 03:00) Ondansetron Inj (Zofran Inj) (04/14/17 03:00) Morphine Inj (Morphine Inj) (04/14/17 03:15) Iohexol 350 Inj (Omnipaque 350 Inj) (04/14/17 01:31) Ceftriaxone Inj (Rocephin Inj) (04/14/17 04:45) Azithromycin Powd Pack (Zithromax Powd P (04/14/17 04:45) Acetaminophen (Tylenol) (04/14/17 05:00) Labs Laboratory Tests Test 04/14/17 02:30 04/14/17 04:45 White Blood Count 4.6 TH/MM3 Red Blood Count 3.59 MIL/MM3 Hemoglobin 11.2 GM/DL Hematocrit 32.6 % Mean Corpuscular Volume 90.7 FL Mean Corpuscular Hemoglobin 31.2 PG Mean Corpuscular Hemoglobin Concent 34.5 % Red Cell Distribution Width 12.3 % Platelet Count 269 TH/MM3 Mean Platelet Volume 7.3 FL Neutrophils (%) (Auto) 56.4 % Lymphocytes (%) (Auto) 33.9 % Monocytes (%) (Auto) 7.7 % Eosinophils (%) (Auto) 1.5 % Basophils (%) (Auto) 0.5 % Neutrophils # (Auto) 2.6 TH/MM3 Lymphocytes # (Auto) 1.5 TH/MM3 Monocytes # (Auto) 0.4 TH/MM3 Eosinophils # (Auto) 0.1 TH/MM3 Basophils # (Auto) 0.0 TH/MM3 CBC Comment DIFF FINAL Differential Comment Blood Urea Nitrogen 11 MG/DL Creatinine 0.52 MG/DL Random Glucose 114 MG/DL Total Protein 7.1 GM/DL Albumin 3.5 GM/DL Calcium Level 7.9 MG/DL Alkaline Phosphatase 59 U/L Aspartate Amino Transf (AST/SGOT) 14 U/L Alanine Aminotransferase (ALT/SGPT) 23 U/L Total Bilirubin 0.5 MG/DL Sodium Level 140 MEQ/L Potassium Level 3.6 MEQ/L Chloride Level 108 MEQ/L Carbon Dioxide Level 25.0 MEQ/L Anion Gap 7 MEQ/L Estimat Glomerular Filtration Rate 170 ML/MIN C-Reactive Protein LESS THAN 0.29 MG/DL Lipase 129 U/L Urine Color LIGHT-YELLOW Urine Turbidity CLEAR Urine pH 7.0 Urine Specific [place] 1.050 Urine Protein NEG mg/dL Urine Glucose (UA) NEG mg/dL Urine Ketones NEG mg/dL Urine Occult Blood SMALL Urine Nitrite NEG Urine Bilirubin NEG Urine Urobilinogen LESS THAN 2.0 MG/DL Urine Leukocyte Esterase NEG Urine RBC 9 /hpf Urine WBC 1 /hpf Urine Bacteria RARE /hpf Microscopic Urinalysis Comment CULT NOT INDICATED Clue Cells (Wet Prep) PRESENT Vaginal Trichomonas (Wet Prep) NONE SEEN Vaginal Yeast (Wet Prep) NONE SEEN MDM Medical Decision Making Medical Screen Exam Complete: Yes Emergency Medical Condition: Yes Medical Record Reviewed: Yes Interpretation(s) Last Impressions Abdomen/Pelvis CT 04/14/17 0257 Signed Impressions: Service Date/Time: Friday, April 14, 2017 03:18 - CONCLUSION: 1. No evidence of acute abdominal or pelvic process. No masses are identified. Elton Moran MD Differential Diagnosis Appendicitis, versus cystitis, versus PID, versus kidney stone Narrative Course During the course of the patients emergency department visit, the patients history, examination, and differential diagnosis were reviewed with the patient. 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 The patient had IV access obtained and blood work sent for analysis. The patient was initially provided .normal saline IV fluids, morphine 4 mg IV for pain, Zofran 4 mg IV for nausea. As on the patient's examination she was noted to have an abnormal vaginal discharge, cervical friability and cervical motion tenderness of patient was given Rocephin 1 g IV, Zithromax 1 g by mouth. The patients laboratory studies were reviewed and remarkable for a white count of 4.6, hemoglobin 11.2, platelets 269 with a normal differential, CMP is remarkable for chloride of 108, glucose 114, calcium 7.9, AST 14, C-reactive protein is less than 0.29, lipase 129, urinalysis shows concentrated urine, small occult blood, 9 rbc's, rare bacteria, culture not indicated. Wet prep is positive for clue cells. Radiology studies were reviewed and remarkable for CT scan of the abdomen and pelvis that shows no acute abnormality. The patient will be discharged home with a prescription for doxycycline and Flagyl. The patient is resting comfortably and feels better, is alert and in no distress. The patients results and examination findings were discussed with the patient. The repeat examination is unremarkable and benign. The history, exam, diagnostic testing, and current condition do not suggest any significant pathology to warrant further testing, continued ED treatment, admission, or surgical evaluation at this point. The vital signs have been stable. The patient does not have uncontrollable pain, intractable vomiting, or other significant symptoms. The patient's condition is stable and appropriate for discharge. The patient will pursue further outpatient evaluation with a primary care physician or other designated or consulting physician as indicated in the discharge instructions. The patient expressed understanding and was agreeable with this plan. 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
[2017-04-14 02:35] VITALS: O2SAT 100
[2017-04-14 02:37] LABS: AUTOMATED NEUTROPHIL # 2.6 TH/MM3 (1.8-7.7); BASOPHIL % 0.5 % (0.0-2.0); EOSINOPHIL # 0.1 TH/MM3 (0-0.4); EOSINOPHIL % 1.5 % (0.0-4.0); HEMATOCRIT 32.6 % (35.0-46.0); HEMOGLOBIN 11.2 GM/DL (11.6-15.3); LYMPH % 33.9 % (9.0-44.0); LYMPHOCYTE # 1.5 TH/MM3 (1.0-4.8); MEAN CELL VOLUME 90.7 FL (80.0-100.0); MEAN CORPUSCULAR HEMOGLOBIN 31.2 PG (27.0-34.0); MEAN CORPUSCULAR HGB CONC 34.5 % (32.0-36.0); MEAN PLATELET VOLUME 7.3 FL (7.0-11.0); MONO % 7.7 % (0.0-8.0); MONOCYTE # 0.4 TH/MM3 (0-0.9); NEUT % 56.4 % (16.0-70.0); PLATELET COUNT 269 TH/MM3 (150-450); RED BLOOD COUNT 3.59 MIL/MM3 (4.00-5.30); RED CELL DISTRIBUTION WIDTH 12.3 % (11.6-17.2); WHITE BLOOD COUNT 4.6 TH/MM3 (4.0-11.0)
[2017-04-14 02:55] LABS: ALBUMIN 3.5 GM/DL (3.4-5.0); ALT (GPT) 23 U/L (10-53); AST (GOT) 14 U/L (15-37); BLOOD UREA NITROGEN 11 MG/DL (7-18); C-REACTIVE PROTEIN LESS THAN 0.29 MG/DL (0.00-0.30); CALCIUM 7.9 MG/DL (8.5-10.1); CHLORIDE 108 MEQ/L (98-107); CREATININE 0.52 MG/DL (0.50-1.00); GLOMERULAR FILTRATION RATE 170 ML/MIN (>89); GLUCOSE,RANDOM 114 MG/DL (74-106); LIPASE 129 U/L (73-393); SODIUM (NA) 140 MEQ/L (136-145)
[2017-04-14 02:57] LABS: ALKALINE PHOSPHATASE 59 U/L (45-117); TOTAL BILIRUBIN ADULT 0.5 MG/DL (0.2-1.0); TOTAL PROTEIN 7.1 GM/DL (6.4-8.2)
[2017-04-14] MEDS ORDERED: SODIUM CHLOR 0.9% 1000 ML INJ 1,000 ML IV ONE (03:00)
[2017-04-14] MEDS ORDERED: MORPHINE SULFATE 4 MG/ML INJ IV PUSH ONE (03:00)
[2017-04-14] MEDS ORDERED: ONDANSETRON HCL 4 MG/2 ML VIAL IV ONE (03:00)
[2017-04-14] MEDS ORDERED: MORPHINE SULFATE 2 MG/ML INJ IV PUSH ONE (03:15)
--- NOTE | 2017-04-14 04:11 | RADRPT ---
EXAM DATE/TIME: 04/14/2017 03:18 [place] COMPARISON: No previous studies available for comparison. INDICATIONS : Abdomen pain and cramping. IV CONTRAST: 70 cc Omnipaque 350 (iohexol) IV ORAL CONTRAST: No oral contrast ingested. RADIATION DOSE: 4.88 CTDIvol (mGy) MEDICAL HISTORY : Asthma SURGICAL HISTORY : None. ENCOUNTER: Initial ACUITY: 1 day PAIN SCALE: 10/10 LOCATION: Bilateral abdomen TECHNIQUE: Volumetric scanning of the abdomen and pelvis was performed. Using automated exposure control and ad justment of the mA and/or kV according to patient size, radiation dose was kept as low as reasonably achievable to obtain optimal diagnostic quality images. DICOM format image data is available electro nically for review and comparison. FINDINGS: LOWER LUNGS: The visualized lower lungs are clear. LIVER: Homogeneous density without lesion. There is no dilation of the biliary tree. No calcified gallston es. SPLEEN: Normal size without lesion. PANCREAS: Within normal limits. KIDNEYS: Normal in size and shape. There is no mass, stone or hydronephrosis. ADRENAL GLANDS: Within normal limits. VASCULAR: There is no aortic aneurysm. BOWEL/MESENTERY: The stomach, small bowel, and colon demonstrate no acute abnormality. There is no free intraperitone al air or fluid. The appendix is not discretely identified though there are no inflammatory changes i n the right lower quadrant. ABDOMINAL WALL: Within normal limits. RETROPERITONEUM: There is no lymphadenopathy. BLADDER: No wall thickening or mass. REPRODUCTIVE: Intrauterine device is present INGUINAL: There is no lymphadenopathy or hernia. MUSCULOSKELETAL: Within normal limits for patient age. CONCLUSION: 1. No evidence of acute abdominal or pelvic process. No masses are identified. Elton Moran MD on April 14, 2017 at 4:07 Board Certified Radiologist. This report was verified electronically.
[2017-04-14] MEDS ORDERED: AZITHROMYCIN PWD FOR SUSP 1 GM PACKET PO ONE (04:45)
[2017-04-14] MEDS ORDERED: cefTRIAXone INJ 1,000 MG in SODIUM CHLORIDE 0.9% INJ 100 ML IV ONE (04:45)
[2017-04-14] MEDS ORDERED: METR-1 PO (04:49)
[2017-04-14] MEDS ORDERED: DOXY100C PO (04:49)
[2017-04-14 05:00] LABS: BACTERIA, URINE RARE /hpf; BILIRUBIN, URINE NEG (NEG); BLOOD, URINE SMALL (NEG); GLUCOSE,URINE NEG (NEG); KETONE, URINE NEG (NEG); NITRITE,URINE NEG (NEG); URINE COLOR LIGHT-YELLOW (YELLW/STRAW); URINE LEUKOCYTE ESTERASE NEG (NEG)
[2017-04-14] MEDS ORDERED: ACETAMINOPHEN 325 MG TAB PO ONE (05:00)
[2017-04-14 05:28] VITALS: BP 114/67; PULSE 64; RESP 14; O2SAT 99
== END 2017-04-14 05:29 | disposition home or self-care (01) ==
LOC: NEPE 01:30
DX: R10.30 Lower abdominal pain, unspecified (principal); N73.9 Female pelvic inflammatory disease, unspecified; N72 Inflammatory disease of cervix uteri; J45.909 Unspecified asthma, uncomplicated
CPT/HCPCS: 74177; 80053; 81001; 83690; 84703; 85025; 86140; 87210; 87491; 87591; 96361; 96374; 96375; 99284; J0696; J2270; J2405; J7030; Q9967

== ENCOUNTER 2017-07-01 22:49 | Emergency (ER) | payer MEDICAID ==
[~2017-07-01] VITALS: Ht 170.2 cm; Wt 56.0 kg
[~2017-07-01 22:49] MED LIST changes: -ALBU6.7H INH; -CEFT500T3 PO; +DOXY100C PO; +METR-1 PO; -NAPR500T PO; -PERI0.126 SWISH-SPIT; -ULTR50TA5 PO; -ZOFR4TAB3 SL
[2017-07-01 22:52] VITALS: BP 136/60; PULSE 99; RESP 16; TEMP 98.3; O2SAT 100
[2017-07-01] MEDS ORDERED: AMOX500C PO (22:59)
[2017-07-01] MEDS ORDERED: HYDR-2376 PO (22:59)
[2017-07-02] MEDS ORDERED: SODIUM CHLOR 0.9% 1000 ML INJ 1,000 ML IV ONE (01:00)
[2017-07-02] MEDS ORDERED: METOCLOPRAMIDE HCL 10 MG/2 ML VIAL IV PUSH ONE (01:00)
[2017-07-02] MEDS ORDERED: traMADol HCL 50 MG TAB PO ONE (01:00)
[2017-07-02] MEDS ORDERED: CLIN150C14 PO (01:41)
[2017-07-02] MEDS ORDERED: TRAM50 PO (01:41)
--- NOTE | 2017-07-02 01:41 | PD ---
HPI . Headache Chief Complaint: Headache Time Seen by Provider: 00:47 Travel History International Travel<30 days: No Contact w/Intl Traveler<30days: No Traveled to known affect area: No History of Present Illness HPI 26-year-old female status post recent right side with some tooth extraction upper and lower, states she had to go in a second time for tooth fragment residual, notes having worsening right-sided headache as well as right-sided facial pain and probable migraine headache. Patient denies any fevers chills sweats, denies any stiff neck rashes difficulty breathing or mouth swelling, especially patient denies submental pain tenderness or swelling. Patient has no stridor and no voice change. PFSH Past Medical History Narrative Medical Past medical history reviewed Asthma: Yes Diminished Hearing: No Respiratory: Yes (asthma) ?: Not : 3 Para: 3 Past Surgical History Gynecologic Surgery: Yes (FIBROID REMOVED) Other Surgery: Yes (DENTAL WISDOM TEETH EXTRACTION) Social History Alcohol Use: No Tobacco Use: No Substance Use: No Allergies-Medications (Allergen,Severity, Reaction): Coded Allergies: ibuprofen (Unverified Allergy, Severe, THROAT SWELLING, 07/01/17) Reported Meds & Prescriptions Reported Meds & Active Scripts Active Reported Hydrocodone-Acetaminophen 7.5-300 Mg Tab 1 Tab PO Q6H PRN Amoxicillin 500 Mg Cap 500 Mg PO BID Narrative Medication Allergies and medications reviewed Review of Systems Except as stated in HPI: all other systems reviewed are Neg General / Constitutional: No: Fever Eyes: No: Visual changes HENT: Positive: Dental Difficulties, No: Headaches Cardiovascular: No: Chest Pain or Discomfort Respiratory: No: Shortness of Breath Gastrointestinal: No: Abdominal Pain Genitourinary: No: Dysuria Musculoskeletal: No: Pain Skin: No Rash Neurologic: No: Weakness Psychiatric: No: Depression Endocrine: No: Polydipsia Hematologic/Lymphatic: No: Easy Bruising Physical Exam Narrative GENERAL: Awake alert oriented 3 no acute distress. Vital signs afebrile normal and stable SKIN: Warm and dry. Color is normal no diaphoresis sinus or pallor HEAD: Atraumatic. Normocephalic. EYES: Pupils equal and round. No scleral icterus. No injection or drainage. ENT: No nasal bleeding or discharge. Mucous membranes pink and moist. Right buccal swelling mild, tenderness. No claudication or jaw. No submental tenderness or fullness NECK: Trachea midline. No JVD. Supple nontender full range of motion CARDIOVASCULAR: Regular rate and rhythm. S1-S2 no murmur murmurs rubs or gallops RESPIRATORY: No accessory muscle use. Clear to auscultation. Breath sounds equal bilaterally. GASTROINTESTINAL: Abdomen soft, non-tender, nondistended. Hepatic and splenic margins not palpable. MUSCULOSKELETAL: Extremities without clubbing, cyanosis, or edema. No obvious deformities. NEUROLOGICAL: Awake and alert. No obvious focal deficits PSYCHIATRIC: Appropriate mood and affect; insight and judgment normal. Data Data Last Documented VS Vital Signs Date Time Temp Pulse Resp B/P (MAP) Pulse Ox O2 Delivery O2 Flow Rate FiO2 07/01/17 22:52 98.3 99 16 136/60 (85) 100 Orders Orders Iv Access Insert/Monitor (07/02/17 00:52) Sodium Chlor 0.9% 1000 Ml Inj (Ns 1000 M (07/02/17 01:00) Metoclopramide Inj (Reglan Inj) (07/02/17 01:00) Tramadol (Ultram) (07/02/17 01:00) Clindamycin (Cleocin) (07/02/17 01:45) MDM Medical Decision Making Medical Screen Exam Complete: Yes Emergency Medical Condition: Yes Medical Record Reviewed: Yes Differential Diagnosis Gingival swelling, dental infection, dental abscess, migraine Narrative Course Patient has interval improvement in his facial pain, as well as near complete resolution of migraine headache after medications. Diagnosis Primary Impression: Pain, dental Additional Impression: Migraine headache Qualified Codes: G43.909 - Migraine, unspecified, not intractable, without status migrainosus Patient Instructions: Dental Caries (ED), General Instructions, Migraine Headache (ED) Additional Instructions: Clindamycin 150 mg 4 times daily for 10 days. Probiotics as discussed. Ultram 50 mg every 8 hours for pain. Follow-up with your oral surgeon tomorrow. Return for worsening Scripts Tramadol (Ultram) 50 Mg Tab 50 MG PO Q6H Y for PAIN, #15 TAB 0 Refills Prov: Pillo Fuentes MD 07/02/17 Clindamycin (Clindamycin) 150 Mg Cap 150 MG PO Q6H for Infection for 10 Days, #40 CAP 0 Refills Prov: Pillo Fuentes MD 07/02/17 Disposition: 01 DISCHARGE HOME Condition: Stable Pillo Fuentes MD Jul 02, 2017 01:41
[2017-07-02] MEDS ORDERED: CLINDAMYCIN 150 MG CAP PO ONE (01:45)
== END 2017-07-02 01:50 | disposition home or self-care (01) ==
LOC: NEPE 22:49
DX: K08.89 Other specified disorders of teeth and supporting structures (principal); G43.909 Migraine, unspecified, not intractable, without status migrainosus; K08.409 Partial loss of teeth, unspecified cause, unspecified class; J45.909 Unspecified asthma, uncomplicated
CPT/HCPCS: 96361; 96374; 99284; J2765; J7030